=== PATIENT | female | born 1985 | race Caucasian/White ===

== ENCOUNTER 2024-09-09 13:04 | Emergency (ER) | payer MEDICAID, SELFPAY ==
--- NOTE | 2024-09-09 13:20 | EKG_ITS ---
[facility] Test Date: 2024-09-09 Pat Name: CHAITANYA RASCON Department: Room: - Gender: Female Data Abstractor: : 1985 Requested By: Hollis Birch (PADMINI) Order Number: [id number] Reading MD: Hollis Birch ([employer]) Measurements Intervals [place] Rate: 97 P: 36 [place]: 145 QRS: 22 QRSD: 97 T: 23 QT: 340 QTc: 434 Interpretive Statements SINUS RHYTHM NONSPECIFIC T-WAVE ABNORMALITY No previous ECG available for comparison /[id number]/[id number]
[2024-09-09 13:31] VITALS: BP 135/77; PULSE 97; RESP 18; TEMP 36.6; O2SAT 99; BMI 46.0
--- NOTE | 2024-09-09 13:46 | XR_ITS ---
Examination: PA lateral chest 2 views TECHNIQUE: Upright AP lateral chest 2 views Exam date and time: September 09, 2024 1359 hours Comparison April 05, 2009 INDICATIONS: Chest pain coughing beginning 3 days ago. FINDINGS: Normal heart size The lungs are clear. The osseous structures are intact IMPRESSION: No active disease
--- NOTE | 2024-09-09 13:47 | PD.EDRME ---
Rapid Medical Screening Exam RME Arrival date/time: 09/09/24 13:04 38-year-old female presents to the emergency department complaints of chest pain Chief Complaint: Chest Pain Vital signs: Vital Signs Temperature 98 F 09/09/24 13:31 Pulse Rate 97 09/09/24 13:31 Respiratory Rate 18 09/09/24 13:31 Blood Pressure 135/77 H 09/09/24 13:31 Pulse Oximetry (%) 99 09/09/24 13:31 Oxygen Delivery Method Room Air 09/09/24 13:31
[2024-09-09 14:04] LABS: Basophils # (Auto) 0.1 Thou/mm3 (0.0-0.2); Basophils % (Auto) 1 % (0-2.5); Eosinophils # (Auto) 0.3 Thou/mm3 (0.0-0.5); Eosinophils % (Auto) 2 % (0-10); Hematocrit 45.1 % (36.0-46.0); Hemoglobin 14.8 g/dL (12.0-16.0); Immature Granulocytes % (Auto) 1 % (0-0); Immature Granulocytes Auto 0.12 Thou/mm3 (0.00-0.00); Lymphocytes # (Auto) 4.4 Thou/mm3 (1.0-4.8); Lymphocytes % (Auto) 22 % (10-50); Mean Corpuscular HGB Conc 32.8 g/dl (31.0-37.0); Mean Corpuscular Hemoglobin 26.7 pg (25.0-35.0); Mean Corpuscular Volume 81 fL (80-100); Monocytes % (Auto) 5 % (0-12); Neutrophils # (Auto) 13.6 Thou/mm3 (1.8-7.7); Neutrophils % (Auto) 70 % (37-80); Nucleated Red Blood Cell % 0 /100 WBC (0); Platelet Count 459 Thou/mm3 (140-440); RDW Standard Deviation 41.6 fL (36.4-46.3); Red Blood Count 5.55 Miln/mm3 (4.00-5.20); White Blood Count 19.5 Thou/mm3 (3.6-11.0)
[2024-09-09 14:20] LABS: HCG,Qualitative Serum Negative
[2024-09-09 14:27] LABS: Alanine Aminotransferase 16 U/L (10-49); Albumin, Serum 4.6 gm/dL (3.5-5.0); Albumin/Globulin Ratio 1.4 (1.2-2.2); Alkaline Phosphatase 92 U/L (46-116); Anion Gap 8 (7-16); Aspartate Amino Transferase 14 U/L (0-34); BUN/Creatinine Ratio 13 Ratio (12-20); Bilirubin,Total 0.5 mg/dL (0.3-1.2); Blood Urea Nitrogen 9 mg/dL (9-23); Calcium 10.3 mg/dL (8.3-10.6); Calcium (Corrected) 10.3 mg/dL (8.5-10.1); Carbon Dioxide 25.8 mMol/L (20.0-31.0); Chloride 105 mMol/L (98-107); Creatinine (Component) 0.7 mg/dL (0.6-1.3); Estimated Creatinine Clearance 163.7 mL/min (>60); Globulin 3.3 gm/dL (2.3-3.5); Glucose 92 mg/dL (74-106); Lipase 27 U/L (12-53); Osmolality,Calculated 276 (275-295); Potassium 3.8 mMol/L (3.4-5.1); Sodium 139 mMol/L (136-145); Total Protein 7.9 gm/dL (5.7-8.2); Troponin I < 0.002 ng/mL (0.0-0.045); eGFR > 60 See Note
[2024-09-09 15:11] LABS: Path Review Blood Smear Sent to Pathologist
--- NOTE | 2024-09-09 18:27 | PC.NURSE ---
pt not found in or outside of ER. pt called and reports she eloped.
== END 2024-09-09 18:28 | disposition left against medical advice (07) ==
PROVIDERS: Nurse Practitioner Primary Care; Emergency Provider Emergency Medicine
DX: R07.9 Chest pain, unspecified (principal); R05.9 Cough, unspecified; R94.31 Abnormal electrocardiogram [ECG] [EKG]; Z53.29 Procedure and treatment not carried out because of patient's decision for other reasons
CPT/HCPCS: 36415; 71046; 80053; 83690; 84484; 84703; 85025; 93005; 99283